=== PATIENT | female | born 1995 | race Caucasian/White ===

== ENCOUNTER 2018-05-09 16:56 | Emergency (ER) | payer OTHER ==
--- NOTE | 2018-05-09 17:09 | PDOC ---
Rapid Medical Evaluation Chief Complaint: Pain, Acute Time Seen by Provider: 05/09/18 17:00 Medical Evaluation: Allergies Allergy/AdvReac Type Severity Reaction Status Date / Time No Known Allergies Allergy Verified 09/02/15 18:10 05/09/18 17:08 I have performed a brief in-person evaluation of this patient. The patient presents with a chief complaint of:pelvic pain w/ fever of 101.3 x 5 days. States menses abnl last month but home preg test was neg Pertinent physical exam findings:Stable I have ordered the following:labs/ua/preg The patient will proceed to the ED for further evaluation Discharge Disposition - Diagnosis Pelvic pain - Discharge Dispostion Condition at time of disposition: Stable - Referrals - Patient Instructions - Post Discharge Activity
[2018-05-09 17:10] VITALS: BMI 19.7
--- NOTE | 2018-05-09 17:24 | PDOC ---
History of Present Illness - General Chief Complaint: Pain, Acute Stated Complaint: ABD PAIN Time Seen by Provider: 05/09/18 17:00 - History of Present Illness Initial Comments: The patient is a 22F w/ a history of C/S x1 (2y ago) who presents for evaluation of 3d of lower abdominal/pelvic pain. The patient describes the pain as cramping, intermittent, radiates to her lower back. She denies having pain like this before. She tried taking Motrin once this morning at 0800 with some relief. Endorses 2 episodes of NBNB emesis yesterday. Reports recent irregular periods, LMP 15d ago. However, reports blood in urine today similar to that which she has during menses. Denies fevers/chills, BHAGAT, vision changes, chest pain, SOB, C/D, or changes in sensation Denies PCP or OBGYN 05/09/18 17:44 Past History - Past Medical History Allergies/Adverse Reactions: Allergies Allergy/AdvReac Type Severity Reaction Status Date / Time No Known Allergies Allergy Verified 09/02/15 18:10 Home Medications: Ambulatory Orders NK [No Known Home Medication] 05/09/18 Asthma: No Cancer: No Cardiac Disorders: No Diabetes: No HTN: No Seizures: No Thyroid Disease: No - Suicide/Smoking/Psychosocial Hx Smoking History: Never smoked Have you smoked in the past 12 months: No Information on smoking cessation initiated: No Hx Alcohol Use: No Drug/Substance Use Hx: No Hx Substance Use Treatment: No Review of Systems - Review of Systems Able to Perform ROS?: Yes Comments:: GENERAL/CONSTITUTIONAL: No fever or chills. No weakness HEAD, EYES, EARS, NOSE AND THROAT: No change in vision. No ear pain or discharge. No sore throat CARDIOVASCULAR: No chest pain or shortness of breath RESPIRATORY: Denies cough, hemoptysis GASTROINTESTINAL: per HPI GENITOURINARY: No dysuria, frequency MUSCULOSKELETAL: No joint or muscle swelling or pain. No neck or back pain SKIN: No rash NEUROLOGIC: No headache, vertigo, loss of consciousness, or change in strength/ sensation ENDOCRINE: No increased thirst. No abnormal weight change HEMATOLOGIC/LYMPHATIC: No anemia, easy bleeding, or history of blood clots ALLERGIC/IMMUNOLOGIC: No hives or skin allergy 05/09/18 17:21 Is the patient limited Japanese proficient: No *Physical Exam - Vital Signs Last Vital Signs Temp Pulse Resp BP Pulse Ox 98.5 F 79 18 114/73 99 05/09/18 17:07 05/09/18 17:07 05/09/18 17:07 05/09/18 17:07 05/09/18 17:07 - Physical Exam Comments: GENERAL: Awake, alert, and fully oriented, in no acute distress HEAD: No signs of trauma, normocephalic, atraumatic EYES: PERRLA, EOMI, sclera anicteric, conjunctiva clear ENT: Hearing grossly normal, nares patent, oropharynx clear without exudates. Moist mucosa LUNGS: No distress, speaks full sentences, clear to auscultation bilaterally HEART: Regular rate and rhythm, normal S1 and S2, no murmurs appreciated, peripheral pulses normal and equal bilaterally ABDOMEN: Soft, suprapubic TTP w/o rebound or guarding, non-distended, normoactive bowel sounds EXTREMITIES : Normal inspection, Normal range of motion, no edema. No clubbing or cyanosis NEUROLOGICAL: Cranial nerves II through XII grossly intact. Normal speech, normal gait, no focal sensorimotor deficits SKIN: Warm, Dry, normal turgor, no rashes or lesions noted 05/09/18 17:22 Moderate Sedation - Procedure Monitoring Vital Signs: Procedure Monitoring Vital Signs Temperature 98.5 F 05/09/18 17:07 Pulse Rate 79 05/09/18 17:07 Respiratory Rate 18 05/09/18 17:07 Blood Pressure 114/73 05/09/18 17:07 O2 Sat by Pulse Oximetry (%) 99 05/09/18 17:07 ED Treatment Course - LABORATORY CBC & Chemistry Diagram: 05/09/18 17:18 05/09/18 17:18 Medical Decision Making - Medical Decision Making The patient is a 22F who presents for 3d of pelvic/suprapubic abdominal pain w/ radiation to her back. W/ recent irregular menses. ED Course CMP, CBC, GC/chlamydia, UA, Upreg Tylenol 975mg PO once for pain 05/09/18 17:22 No leukocytosis No anemia 05/09/18 18:20 lytes wnl No MONSE LFTs wnl Preg neg gc/clamydia neg UA w/o evidence of UTI Plan for D/C w/ [facility] [employer] [facility] f/u Discharge instructions and return precautions given Patient in agreement and verbalized understanding Dispo: home 05/09/18 19:29 *DC/Admit/Observation/Transfer Diagnosis at time of Disposition: Pelvic pain - Discharge Dispostion Disposition: HOME Condition at time of disposition: Stable Decision to Admit order: No - Referrals Referrals: Michelle De Los Santos MD [Staff Physician] - - Patient Instructions Printed Discharge Instructions: DI for Pelvic Pain Additional Instructions: You were seen in the Emergency Department for pelvic pain. Please review the handout provided at discharge. Follow up with [facility], contact information is in your discharge paperwork. Return to the Emergency Department if your symptoms persist/worsen, develop vomiting, diarrhea, fevers/chills, or any new/concerning symptoms. Usted fue atendido en el servicio de urgencias por dolor plvico. Por favor revise el folleto provisto al momento del danika. Lakia un seguimiento con un gineclogo, la informacin de contacto se encuentra en rod documentacin de danika. Regrese al Departamento de Emergencias si reilly sntomas persisten / empeoran, desarrolla vmitos, diarrea, fiebre / escalofros o cualquier sntoma nuevo o relacionado con ellos. Print Language: AUSTRALIAN - Post Discharge Activity
[2018-05-09] MEDS ORDERED: ACETAMINOPHEN 325 MG TABLET (FP) PO ONE (17:52)
[2018-05-09 18:01] LABS: BASO % 0.4 % (0-2.0); EOS % 3.1 % (0-4.5); HEMATOCRIT 37.8 % (32.4-45.2); HEMOGLOBIN 13.1 GM/dL (10.7-15.3); LYMPH % 32.2 % (8-40); MCH 29.9 pg (25.7-33.7); MCHC 34.8 g/dl (32.0-36.0); MEAN PLT VOLUME 8.5 fl (7.5-11.1); MONO % 13.5 % (3.8-10.2); NEUT % 50.8 % (42.8-82.8); PLATELET COUNT 294 K/MM3 (134-434); RBC 4.39 M/mm3 (3.60-5.2); RDW 13.1 % (11.6-15.6); WHITE BLOOD COUNT 6.4 K/mm3 (4.0-10.0)
[2018-05-09] MEDS ORDERED: ACETAMINOPHEN 325 MG TABLET (FP) ONE (18:04)
[2018-05-09 18:38] LABS: ALBUMIN 3.8 g/dl (3.4-5.0); ALK PHOS 105 U/L (45-117); ANION GAP 7 MMOL/L (8-16); BILIRUBIN,TOTAL 0.3 mg/dL (0.2-1); BLOOD UREA NITROGEN 9 mg/dL (7-18); CALCIUM 8.6 mg/dL (8.5-10.1); CHLORIDE 106 mmol/L (98-107); CO2 26 mmol/L (21-32); CREATININE 0.5 mg/dL (0.55-1.3); GLUCOSE,RANDOM 93 mg/dL (74-106); POTASSIUM 3.9 mmol/L (3.5-5.1); SGOT/AST 28 U/L (15-37); SGPT/ALT 26 U/L (13-61); SODIUM 139 mmol/L (136-145); TOT PROT 7.8 g/dl (6.4-8.2)
[2018-05-09 18:52] LABS: HCG,QUALITATIVE URINE Negative; URINE APPEARANCE CLOUDY; URINE BILIRUBIN NEGATIVE (<2.0 mg/dL); URINE COLOR YELLOW; URINE GLUCOSE (UA) NEGATIVE (NEGATIVE); URINE KETONE NEGATIVE (NEGATIVE); URINE LEUK ESTERASE NEGATIVE (NEGATIVE); URINE NITRITE NEGATIVE (NEGATIVE); URINE PROTEIN NEGATIVE (NEGATIVE); URINE UROBILINOGEN NEGATIVE mg/dL (0.2-1.0)
--- NOTE | 2018-05-09 19:34 | PDOC ---
Attending Attestation - [facility] HPI: 05/09/18 19:35 The patient is a 22 year old female with no significant past medical history here today for evaluation of abdominal pain. The patient reports that her abdominal pain radiates to her back , feels like cramping, and started 3 days ago. She also reports recent irregular menstruation periods. She notes one episode of hematuria and two episodes of vomiting which took place yesterday. The patient reports taking motrin which provided no relief. She reports being sexually active and does not use protection. Patient denies headache, lightheadedness. Denies fever, chills. Denies chest pain, shortness of breath. Denies nausea, diarrhea, abdominal pain. Denies lower extremity edema. Denies neurologic symptoms. LMP: 04/20/18 Allergies: NKA Social history: Patient denies tobacco, alcohol, and drug use. Surgical history: (2016). PCP: none reported - Physicial Exam PE: 05/09/18 19:35 GENERAL: Well developed, well nourished. Awake and alert. No acute distress. HEENT: Normocephalic, atraumatic. PERRLA, EOMI. No conjunctival pallor. Sclera are non- icteric. Moist mucous membranes. Oropharynx is clear. NECK: Supple. Full ROM. No JVD. Carotid pulses 2+ and symmetric, without bruits. No thyromegaly. No lymphadenopathy. CARDIOVASCULAR: Regular rate and rhythm. No murmurs, rubs, or gallops. Distal pulses are 2+ and symmetric. PULMONARY: No evidence of respiratory distress. Lungs clear to auscultation bilaterally. No wheezing, rales or rhonchi. ABDOMINAL: +right suprapubic pain. Soft. Non-distended. No rebound or guarding. No organomegaly. Normoactive bowel sounds. MUSCULOSKELETAL Normal range of motion at all joints. No bony deformities or tenderness. No CVA tenderness. EXTREMITIES: No cyanosis. No clubbing. No edema. No calf tenderness. SKIN: Warm and dry. Normal capillary refill. No rashes. No jaundice. NEUROLOGICAL: Alert, awake, appropriate. Cranial nerves 2-12 intact. No deficits to light touch and temperature in face, upper extremities and lower extremities. No motor deficits in the in face, upper extremities and lower extremities. Normoreflexic in the upper and lower extremities. Normal speech. Toes are down- going bilaterally. Gait is normal without ataxia. PSYCHIATRIC: Cooperative. Good eye contact. Appropriate mood and affect. <Cuco Jarrett - Last Filed: 05/09/18 19:34> - Resident Resident Name: Enio Auguste - ED Attending Attestation I have performed the following: I have examined & evaluated the patient, The case was reviewed & discussed with the resident, I agree w/resident's findings & plan, Exceptions are as noted - Medical Decision Making 05/09/18 19:59 22-year-old female with irregular menstruation and pelvic cramping. Negative test UA is negative for any infection. CBC does not show any leukocytosis or significant anemia and her chemistries were unremarkable She has no right lower quadrant pain, no diarrhea, no left lower quadrant pain and her lungs are clear to auscultation. Impression dysfunctional uterine bleeding Plan follow-up with gynecology <Nanci Cedeño - Last Filed: 05/09/18 20:00>
[2018-05-09 20:05] VITALS: BP 106/66; PULSE 61; TEMP 97.8
== END 2018-05-09 20:02 | disposition home or self-care (01) ==
LOC: JER 16:56
DX: R10.2 Pelvic and perineal pain (principal)
CPT/HCPCS: 36415; 80053; 81003; 84703; 85025; 87086; 87491; 87591; 99282-25

== ENCOUNTER 2018-10-16 00:21 | Emergency (ER) | payer OTHER ==
[2018-10-16 01:24] VITALS: PULSE 84; TEMP 98.4; BMI 19.6
[2018-10-16 01:47] LABS: BASO % 0.5 % (0-2.0); EOS % 1.1 % (0-4.5); HEMOGLOBIN 12.3 GM/dL (10.7-15.3); LYMPH % 27.7 % (8-40); MCHC 33.3 g/dl (32.0-36.0); MEAN CELL VOLUME 87.2 fl (80-96); MEAN PLT VOLUME 7.6 fl (7.5-11.1); MONO % 8.1 % (3.8-10.2); NEUT % 62.6 % (42.8-82.8); PLATELET COUNT 253 K/MM3 (134-434); RBC 4.24 M/mm3 (3.60-5.2); RDW 13.4 % (11.6-15.6); WHITE BLOOD COUNT 8.4 K/mm3 (4.0-10.0)
[2018-10-16 02:00] LABS: EPI CELLS 3.9 /HPF (0-5/HPF); URINE APPEARANCE CLEAR; URINE BACTERIA 133.5 /hpf (NEGATIVE); URINE BILIRUBIN NEGATIVE (NEGATIVE); URINE CASTS 1 /lpf (0-8); URINE COLOR YELLOW; URINE GLUCOSE (UA) NEGATIVE (NEGATIVE); URINE KETONE NEGATIVE (NEGATIVE); URINE LEUK ESTERASE NEGATIVE (NEGATIVE); URINE NITRITE NEGATIVE (NEGATIVE); URINE PROTEIN NEGATIVE (NEGATIVE); URINE RBC 6 /hpf (0-4); URINE UROBILINOGEN 0.2 mg/dL (0.2-1.0); URINE WBC 1 /hpf (0-5)
--- NOTE | 2018-10-16 02:13 | PDOC ---
History of Present Illness - General Chief Complaint: Vaginal Bleeding Stated Complaint: 8 WEEKS -VAGINAL BLEEDING Time Seen by Provider: 10/16/18 01:23 - History of Present Illness Initial Comments: Savannah Archer is a 23yo otherwise healthy woman at approximately 8wks gestation by LMP (on 08/25/18) who presents with sharp low back pain today and an episode of light pink bleeding this evening. She states that she noticed the pink-colored discharge when she went to the bathroom tonight. She never had anything similar in the past. There were no complications during her first ; her daughter was born at term via (failure of labor progression). She has not yet established care with OB during this . Prior to the bleeding and back pain today, she has had no issues during the current . Ms Archer denies any continued current bleeding, abdominal pain, passage of clots, or other symptoms. She did not take any pain medication for her back because she was not sure what was safe. Past History - Past Medical History Allergies/Adverse Reactions: Allergies Allergy/AdvReac Type Severity Reaction Status Date / Time No Known Allergies Allergy Verified 10/16/18 01:24 Home Medications: Ambulatory Orders NK [No Known Home Medication] 05/09/18 Asthma: No Cancer: No Cardiac Disorders: No COPD: No Diabetes: No HTN: No Seizures: No Thyroid Disease: No - Immunization History Immunization Up to Date: (UNKNOWN) - Suicide/Smoking/Psychosocial Hx Smoking History: Never smoked Have you smoked in the past 12 months: No Information on smoking cessation initiated: No Hx Alcohol Use: No Drug/Substance Use Hx: No Hx Substance Use Treatment: No Review of Systems - Review of Systems Comments:: General: No fevers, no chills, no weight or appetite change, no malaise HEENT: No changes in vision, no changes in hearing, no congestion, no sore throat CV: No chest pain, no palpitations, no LE edema Pulm: No SOB, no cough, no wheezing GI: No nausea or vomiting, no change in bowel habits, no melena : No frequency, no urgency, no dysuria Musc: No back pain, no joint swelling, no recent injury Skin: No rash, no lesions, no erythema Endo: No excessive thirst, no heat/cold intolerance Heme: No unusual bruising or bleeding, no swollen glands Neuro: No syncope, no numbness/tingling, no focal weakness Vasc: No claudication Psych: No recent change in mood, no SI or HI *Physical Exam - Vital Signs Last Vital Signs Temp Pulse Resp BP Pulse Ox 98.4 F 84 20 103/63 98 10/16/18 01:17 10/16/18 01:17 10/16/18 01:17 10/16/18 01:10/16/18 01:17 - Physical Exam Comments: General: Comfortable, no acute distress HEENT: PERRL, EOMI, MMM, voice normal, normal neck ROM, no LAD Cards: RRR, no murmur appreciated Pulm: Comfortable on room air, clear to auscultation bilaterally Abd: Soft, nontender, nondistended : Normal external genitalia. Small amount of white physiologic discharge noted in vaginal canal. No bleeding, no lesions. No CMT or adnexal tenderness. Os closed to palpation. Ext: Atraumatic. No LE edema. ROM intact. Vasc: Extremities WWP. Skin: Normal color, no rashes or lesions Neuro: A&Ox3, CN grossly intact, normal speech, motor/sensory grossly intact and symmetric, normal gait Psych: Mood appropriate to situation ED Treatment Course - LABORATORY CBC & Chemistry Diagram: 10/16/18 01:22 10/16/18 01:22 - ADDITIONAL ORDERS Additional order review: 10/16/18 01:22 RBC 4.24 MCV 87.2 MCHC 33.3 RDW 13.4 MPV 7.6 D Neutrophils % 62.6 D Lymphocytes % 27.7 Monocytes % 8.1 Eosinophils % 1.1 Basophils % 0.5 Medical Decision Making - Medical Decision Making 10/16/18 02:28 Savannah Archer is a 23yo otherwise healthy woman at reported 8wks gestation by LMP (on 08/25/18, 7w3d) who presents with sharp low back pain today and an episode of light pink bleeding this evening. - Normal v threatened v inevitable . No report of clots or significant bleeding; unlikely to be completed . - CBC, chemistry, bHCG, T&S ordered by Dr Wei. CBC and chemistry unremarkable. bHCG not yet completed - Transvaginal US completed, to be reviewed when available - Benign physical exam. Os closed, no current bleeding 10/16/18 02:55 - Reviewed US. Intrauterine gestational sac seen. Measures 5w5d. HR not recorded. Radiology report pending - Updated Ms Archer. Will most likely d/c home with OB follow up when US report available and bHCG completed. 10/16/18 04:36 - bHCG 10,000, c/w gestational age - Will d/c home with 72hr follow-up for repeat ultrasound and bHCG. - Has not yet established care w/ OB, will refer Discussed with Dr Wei. Natalie Dwyer PGY1 *DC/Admit/Observation/Transfer Diagnosis at time of Disposition: Vaginal bleeding in patient at less than 20 weeks gestation - Discharge Dispostion Disposition: HOME Condition at time of disposition: Fair Decision to Admit order: No - Referrals Referrals: Tameka Blake MD [Staff Physician] - Junior Maier MD [Staff Physician] - Michelle De Los Santos MD [Staff Physician] - Chema Magana MD [Staff Physician] - Aye Cavanaugh MD [Staff Physician] - - Patient Instructions Printed Discharge Instructions: DI for -- Discomforts and Remedies, DI for Vaginal Bleeding During Additional Instructions: Discharge Instructions: You were seen in the ED for vaginal bleeding during . You had blood tests, an ultrasound, and a physical exam. There is currently no bleeding. Your ultrasound showed an early at approximately 5 weeks 6 days. It is too early to see a heartbeat. [place] [id number]. You will need to follow up in 48 hours for repeat ultrasound and blood tests. You may see an shift manager or come back to the emergency room for these tests. You may take acetaminophen (Tylenol) 650mg every 6-8 hours as needed for pain. Do not take more than 4000mg per day. Please establish care with an shift manager as soon as possible. You should be seen within the next 2-3 days. Seek immediate care if you have continued or worsening symptoms, continued vaginal bleeding, severe abdominal pain, or any other medical emergency. Instrucciones de descarga: Usted fue atendido en el servicio de urgencias por sangrado vaginal zaid el embarazo. Le hicieron anlisis de luis, arnold ecografa y un examen fsico. Actualmente no hay sangrado. Mclain ultrasonido mostr un embarazo temprano en aproximadamente 5 semanas y 6 neri. Es demasiado temprano para chandler un latido del corazn. Mclain hormona del embarazo se midi para ser 10,000. Deber realizar un seguimiento en 48 horas para repetir la ecografa y los anlisis de luis. Puede chandler a un obstetra o regresar a la jelly de emergencias. Puede sayna acetaminofn (Tylenol) 650 mg cada 6-8 horas segn sea necesario para el dolor. No tome ms de 4000mg por da. Por favor establezca la atencin con un obstetra lo antes posible. Deben verlo dentro de las prximas 2 o 3 ashby. Busque atencin inmediata si tiene sntomas continuos o que empeoran, sangrado vaginal continuo, dolor abdominal intenso o cualquier otra emergencia mdica. Print Language: SPA - Post Discharge Activity
[2018-10-16 02:21] LABS: ALBUMIN 3.8 g/dl (3.4-5.0); BILIRUBIN,TOTAL 0.5 mg/dL (0.2-1); CALCIUM 8.8 mg/dL (8.5-10.1); CREATININE 0.5 mg/dL (0.55-1.3); POTASSIUM 3.5 mmol/L (3.5-5.1)
[2018-10-16] MEDS ORDERED: ACETAMINOPHEN 325 MG TABLET (FP) PO ONE (02:27)
[2018-10-16] MEDS ORDERED: ACETAMINOPHEN 325 MG TABLET (FP) ONE (02:33)
--- NOTE | 2018-10-16 03:00 | PDOC ---
Attending Attestation - Resident Resident Name: YuliyaNatalie - ED Attending Attestation I have performed the following: I have examined & evaluated the patient, The case was reviewed & discussed with the resident, I agree w/resident's findings & plan, Exceptions are as noted - HPI HPI: 10/16/18 03:11 23yo F 8 weeks by dates presents to the ED with lower back pain since this evening a/w with one episode of blood on toilet paper also this evening. Pt is tearful and concerned something is wrong with the . Has not had care for this yet. Denies fevers, chills, vaginal DC, dysuria , hematuria, frequency. Denies CP, SOB, dizziness, abd pain. Previous was full term, no complications. Denies trauma. - Physicial Exam PE: 10/16/18 03:19 agree with resident exam - Medical Decision Making 10/16/18 03:20 23yo F 7 weeks by dates presents to the ED with low back pain and vaginal spotting. Vitals wnl Exam with no blood in vault, os closed, no adnexal or midline ttp Labs thus far wnl, pt is O+ TVUS and B HCG pending. 10/16/18 04:39 TVUS with 5w+6d preg, no FHR yet possibly as too early Likely threatened Ab No further bleeding in ED HDS Plan for pt to f/u with OB within 48 hours for rpt beta, or return to ED if she can not get appointment Pt in agreement with plan REturn precautions given I discussed the physical exam findings, ancillary test results and final diagnoses with the patient. I answered all of the patient's questions. The patient was satisfied with the care received and felt comfortable with the discharge plan and treatment plan. The patient will call their primary care physician within 24 hours to arrange follow-up and will return to the Emergency Department with any new, persistent or worsening symptoms.
[2018-10-16 04:52] VITALS: BP 108/61
== END 2018-10-16 04:53 | disposition home or self-care (01) ==
LOC: JER 00:21
DX: O26.891 Other specified pregnancy related conditions, first trimester (principal); O20.8 Other hemorrhage in early pregnancy; Z3A.08 8 weeks gestation of pregnancy
CPT/HCPCS: 36415; 76817-TC; 80053; 81003; 83735; 84702; 85025; 86850; 86900; 86901; 87086; 99283-25

== ENCOUNTER 2019-06-06 18:40 | Inpatient (IN) | payer OTHER ==
[2019-06-06] MEDS ORDERED: ELECTROLYTE-148 SOLN 500 ML IV ONE (20:13)
[2019-06-06] MEDS ORDERED: CITRIC ACID/SODIUM CITRATE 30 ML UNIT-DOSE CUP PO ONE (20:13)
--- NOTE | 2019-06-06 20:29 | HP ---
Past Medical History - Primary Care Physician PCP:: Aye Cavanaugh - Admission Chief Complaint: 23 yrs , 39.1 weeks iup previous LFTC/section , onset LP since 7.00AM , she requests for repeat c/s , declines to try trial History of Present Illness: care at , [facility] wt gain 28 lbs work Up 11/04/18 O pos, , h/h11.7/37.2, plt 283, Hbsag neg, varicella immune, rubella immune , hiv neg , sickle neg 28 week panel :03/08/2019 h/h 11.8/35.1 , plt 272, Quantiferon neg , 1hr gtt 119 , hiv neg 36 week panel ;05/22/2019 h/h 12.1/37.4, plt 272, gbs neg, hiv neg pt was seen by MFM NT screen & AFP screen neg growth sono done last sono on 05/23/19 37.1 wks, Vx, ant placenta, bharati 11,4, efw 7'9" ( 84 %tile ) pt has come to L&D on 05/23 & 05/26 for labor assess. c/o pain for 3 days , severe since 7.00 AM today , unable to tolerate . History Source: Patient, Medical Record Limitations to Obtaining History: No Limitations - Past Medical History MARRIAGE COUNSELOR: No: Alzheimer's, CVA Cardiovascular: No: AFIB, HTN, Murmur Pulmonary: No: Asthma Hepatobiliary: No: Hepatitis B, Hepatitis C ...: 2 ...Para: 1 (primary c/section 09/03/15 PPROM, FTP , 8lb ) ...Term: 1 ...LMP: 08/22/18 ... Weeks Gestation by Dates: 41 ...EDC by Dates: 05/29/19 (EDC considered by SONO ) ...EDC by Sono: 06/12/19 (39.1 weeks by sono ) Heme/Onc: Yes: Anemia Infectious Disease: No: AIDS, HIV, STD's Psych: No: Addictions, Anxiety, Bipolar, Depression, Panic, Psychosis, Schizophrenia, Other Musculoskeletal: No: Bursitis, Chronic low back pain, Hemiparesis, Hemiplegia, Osteoarthritis, Paraplegia, Other Rheumatology: Yes: Other (none) Endocrine: No: Renzo's Disease, Home's Disease, Diabetes Insipidus, Diabetes Mellitus, Hyperparathyroidism, Hyperthyroidism, Hypothyroidism, Osteopenia, SIADH, Other - Past Surgical History Past Surgical History: Yes: (09/03/2015 primaer LFTC/s sj) Hx Myomectomy: No Hx Transabdominal Cerclage: No - Smoking History Smoking history: Never smoked Have you smoked in the past 12 months: No - Alcohol/Substance Use Hx Alcohol Use: No History of Substance Use: reports: None - Social History History of Recent Travel: No Home Medications - Allergies Allergies/Adverse Reactions: Allergies Allergy/AdvReac Type Severity Reaction Status Date / Time No Known Allergies Allergy Verified 06/06/19 21:04 - Home Medications Home Medications: Ambulatory Orders Ferrous Sulfate [Feosol] 325 mg PO DAILY 06/06/19 Vitamins (r) - 1 tab PO DAILY 06/06/19 Physical Exam - Maternity Vital Signs: Selected Entries 06/06/19 20:01 Temperature 98.6 F Pulse Rate 81 Blood Pressure 127/81 Weight 138 lb Constitutional: Yes: Severe Distress (crying), Other (pain scale 10/10) Eyes: Yes: WNL HENT: Yes: WNL, Normocephalic Neck: Yes: WNL Cardiovascular: Yes: WNL, Regular Rate and Rhythm Lungs: Clear to auscultation Breast(s): Yes: WNL - Abdominal Exam/OB Fundal Height: 40 Number of Fetuses: Single Presentation: Vertex Contractions: Yes Regularity: Irregular (2-4 min) Intensity: Mod/Strong Monitor Mode: External Heart Rate (range): 130-140 Heart Rate Location: [facility] Category: I Accelerations: Uniform - Vaginal Exam/OB Vaginal Bleediing: No Speculum Exam: No Dilatation (cm): FT Effacement (%): 60 Amniotic Membrane Status: Intact Presentation: Vertex/Position (exam at 7.40 PM) Station: -3 - Physical Exam Musculoskeletal: Yes: WNL Extremities: Yes: WNL. No: Calf Tenderness Edema: Yes Edema: LLE: 1+, RLE: 1+ Integumentary: Yes: WNL, Incision (pfannensteil icision keloid, tender to palpate) Deep Tendon Reflex Grade: Normal +2 ...Motor Strength: WNL Psychiatric: Yes: WNL, Alert, Oriented - Labs Lab Results: Laboratory Tests 06/06/19 06/06/19 06/06/19 20:45 20:45 20:45 WBC 8.5 Hgb 12.4 Hct 37.2 MCV 90.7 MCH 30.2 MCHC 33.3 RDW 13.9 Plt Count 251 MPV 8.1 Absolute Neuts (auto) 5.8 Neutrophils % 68.0 Lymphocytes % 24.5 Monocytes % 6.5 Eosinophils % 0.4 Basophils % 0.6 PT with INR 11.00 INR 0.93 PTT (Actin FS) 30.2 Sodium 138 Potassium 3.7 Chloride 107 Carbon Dioxide 21 BUN 11.6 Creatinine 0.5 L Random Glucose 80 Blood Type Antibody Screen 06/06/19 20:45 WBC Hgb Hct MCV MCH MCHC RDW Plt Count MPV Absolute Neuts (auto) Neutrophils % Lymphocytes % Monocytes % Eosinophils % Basophils % PT with INR INR PTT (Actin FS) Sodium Potassium Chloride Carbon Dioxide BUN Creatinine Random Glucose Blood Type O POSITIVE Antibody Screen Negative Hemorrhage Risk Assessment - Risk Factors Medium Risk Factors: Yes: Prior , uterine surgery,or multiple laparotomies Risk Score: 1 Risk Level: Medium Risk Problem List - Problems (1) with 39 completed weeks gestation Code(s): Z3A.39 - 39 WEEKS GESTATION OF (2) Labor established Code(s): VAS3083 - (3) Previous section Code(s): Z98.891 - HISTORY OF UTERINE SCAR FROM PREVIOUS SURGERY Assessment/Plan 23 yrs 39.1 weeks has prodromal latent phase of labor pt refuses to continue trial of . requests for repeat c/s . r/b/a told
[2019-06-06] MEDS ORDERED: ELECTROLYTE-148 SOLN 1,000 ML IV SCH (20:45)
[2019-06-06 21:02] LABS: BASO % 0.6 % (0-2.0); EOS % 0.4 % (0-4.5); HEMATOCRIT 37.2 % (32.4-45.2); HEMOGLOBIN 12.4 GM/dL (10.7-15.3); LYMPH % 24.5 % (8-40); MCH 30.2 pg (25.7-33.7); MCHC 33.3 g/dl (32.0-36.0); MEAN CELL VOLUME 90.7 fl (80-96); MEAN PLT VOLUME 8.1 fl (7.5-11.1); MONO % 6.5 % (3.8-10.2); PLATELET COUNT 251 K/MM3 (134-434); RDW 13.9 % (11.6-15.6); WHITE BLOOD COUNT 8.5 K/mm3 (4.0-10.0)
[2019-06-06 21:21] LABS: INR 0.93 (0.83-1.09)
[2019-06-06 21:24] LABS: ACTIVATED PTT 30.2 SECONDS (25.2-36.5)
[2019-06-06 21:51] VITALS: BMI 26.9
[2019-06-06 22:43] LABS: BLOOD UREA NITROGEN 11.6 mg/dL (7-18); CALCIUM 8.6 mg/dL (8.5-10.1); CREATININE 0.5 mg/dL (0.55-1.3); POTASSIUM 3.7 mmol/L (3.5-5.1)
[2019-06-06] MEDS ORDERED: morphine SULFATE/PF 0.5 MG/ML (2cc Syringe - QUVA) ONE (23:54)
[2019-06-07] MEDS ORDERED: OXYTOCIN 20 UNITS in 0.9% NS 20 UNIT/1,000 ML INFUS.BAG IV ONE (00:59)
[2019-06-07] MEDS ORDERED: METHYLERGONOVINE MALEATE 0.2 MG/1 ML AMP IM PRN (01:19)
[2019-06-07] MEDS ORDERED: IBUPROFEN 800 MG/8 ML IJ IVPB PRN (01:19)
[2019-06-07] MEDS ORDERED: OXYTOCIN 20 UNITS in 0.9% NS 20 UNIT/1,000 ML INFUS.BAG IV SCH (01:30)
--- NOTE | 2019-06-07 01:34 | OP ---
Operative Note - Note: Operative Date: 06/07/19 Pre-Operative Diagnosis: 39.1 weeks, previous c/s inlabor, requests repeat c/s Operation: Kristin LFTC/section Findings: TOB 12.21 AM , Baby Boy, Vx ROT position, 9/9, wt 8'5", HT19" , cord around neckx1 both tubes & ovaries normal AFluid clear , low amount Dr Lira cell tuber machine present in the room skin scar keloid , excised , sent for pathology Surgeon: Aye Cavanaugh Patient Access Specialist: Pan Atkinson Anesthesiologist/FRANCHISE SALES REPRESENTATIVE: Aden Rosas Anesthesia: Spinal Specimens Removed: keloid skin scar. cord blood for cord gas sampling. cord blood. placenta Estimated Blood Loss (mls): 500 Drains, Volume Out (mls): 300 (eric color rodriguez catheter ) Fluid Volume Replaced (mls): 1,800 (iv ancef 2gm ivpb given ) Operative Report Dictated: Yes
[2019-06-07] MEDS ORDERED: ACETAMINOPHEN 325 MG TABLET (FP) PO PRN (02:16)
--- NOTE | 2019-06-07 03:25 | PN ---
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 PNC at , [facility] gbs neg. Intraop course uneventful 2 gm iv ancef prior to incision was given
--- NOTE | 2019-06-07 07:57 | OP ---
DATE OF OPERATION: 06/07/2019 PREOPERATIVE DIAGNOSIS: 39.1 weeks, previous section, in labor, request for repeat section. PROCEDURE PERFORMED: Repeat dxf-jmxz-sbjabvyoyl section. SURGEON: Aye Cavanaugh MD TEACHER ADULT EDUCATION: RHYS Connell ANESTHESIOLOGIST: Aden Rosas MD ANESTHESIA: Spinal. STRATEGIC CONSULTANT: Meghann Lira MD INDICATIONS: This 23-year-old -0-0-1, at 39.1 weeks, has onset of labor since 7 a.m. She was having contractions every 2 to 4 minutes, irregularly. She was fingertip dilated and was 60%, -3 station. The patient refused to continue trial, which she had planned before, and she requested repeat . DESCRIPTION OF PROCEDURE: A Delvalle catheter was placed. The abdomen was shaved and prepped. CD stockings were applied. The patient was taken to the operating room table. Spinal anesthesia was given. Then the abdomen was painted and draped in the usual manner. A Pfannenstiel incision was made through the previous scar, which was a keloid. The incision was made around the scar and it was excised. Subcutaneous tissue and scar tissue were incised transversely. Bleeding points were clamped and cauterized. The rectus sheath was also incised transversely. The rectus muscle was . The parietal peritoneum was opened vertically. The lower flap by the peritoneum was identified. It was incised transversely. The bladder was high on the uterus. So carefully the incision was taken higher up in the lower segment and it was extended transversely. The amniotic fluid was clear. The amniotic fluid appeared to be a low amount. The baby was at 0021 hours from ROT position, vertex. Apgars were 9 and 9. The cord was clamped and cut. Cord blood was collected. The baby had a cord around the neck. The baby's weight is 8 pounds 5 ounces and length is 19 inches. After the cord was cut, the placenta was removed completely with the membranes. Before that, cord blood was collected and cord segment was also sent for cord blood gases. Then the uterine cavity was cleaned. Both tubes and ovaries were normal. Then the uterine incision was closed in 2 layers. The 1st layer was a continuous locking with Biosyn 0 suture. The 2nd layer was a continuous intermittent locking with Biosyn 0 suture, and the 1st layer was imbricated with that. Intermittent sutures were taken in the bladder peritoneum and it was not completely covered where the bladder was very close to the peritoneum. Irrigation was done. Sponge, instrument and needle count was correct. Then closure of the abdomen was done. The parietal peritoneum was closed with Vicryl 0 suture. The muscles were approximated together with Vicryl 0 sutures. Interrupted sutures were taken. Then the anterior rectus sheath was mobilized from the skin scar and the rectus muscles under the rectus sheath, and bleeding was checked. Hemostasis was noted. Then the rectus sheath was closed with Vicryl 0 suture; continuous sutures were taken. Then the subcutaneous tissue with interrupted Biosyn 0 sutures were approximated. Then the skin was approximated with luis. A pressure dressing was given. Blood clots were removed from the vagina. The patient tolerated the procedure well and she was transferred to the recovery room in stable condition. Estimated blood loss was 500 mL. She had intraoperative urine output of 300 mL. She received 2 g of IV Ancef prior to the incision. Lana [id number]
[2019-06-07] MEDS ORDERED: CEFAZOLIN 1 GM/D5W 1 GM/50 ML BAG IVPB SCH (08:00)
--- NOTE | 2019-06-07 08:53 | PN ---
Progress Note (short form) - Note Progress Note: ppd #0 pt in bed scd in situ rodriguez in place draining , out put 150 ml, eric color urine in rodriguez bag pain scale 3/10, getting iv Motrin . Selected Entries 06/07/19 06:00 Temperature 98.1 F Pulse Rate 76 Blood Pressure 113/65 p/a abd not distended , soft bs active dressing dry lochia moderate attempting BF ass stable Plan ct po care encourage ambulation when rodriguez taken out Problem List - Problems (1) with 39 completed weeks gestation Code(s): Z3A.39 - 39 WEEKS GESTATION OF (2) Labor established Code(s): VLZ0496 - (3) Previous section Code(s): Z98.891 - HISTORY OF UTERINE SCAR FROM PREVIOUS SURGERY
[2019-06-07] MEDS: CEFAZOLIN 1 GM/D5W 1 GM/50 ML BAG IVPB SCH ×2 (10:31→16:48)
[2019-06-07] MEDS: IBUPROFEN 600 MG TABLET (FP) PO PRN ×2 (16:47→22:22)
[2019-06-07] MEDS: ACETAMINOPHEN 325 MG TABLET (FP) PO PRN ×2 (16:48→22:23)
[2019-06-07] MEDS: SIMETHICONE 80 MG TAB.CHEW (FP) PO PRN (22:21)
[2019-06-07] MEDS: SENNOSIDES/DOCUSATE COMBO (SENNA PLUS) TABLET (UD) PO PRN (22:21)
[2019-06-08] MEDS: CEFAZOLIN 1 GM/D5W 1 GM/50 ML BAG IVPB SCH (00:48)
[2019-06-08] MEDS: ACETAMINOPHEN 325 MG TABLET (FP) PO PRN ×2 (06:13→13:20)
[2019-06-08] MEDS: IBUPROFEN 600 MG TABLET (FP) PO PRN ×3 (06:13→20:14)
--- NOTE | 2019-06-08 06:29 | PN ---
Post Progress Note - Subjective Subjective: Pain controlled. Delvalle in place. No fevers/chills. Post Day: 1 Type of Delivery: Repeat C/S Vital Signs: Vital Signs Temperature 98.7 F 06/07/19 21:41 Pulse Rate 79 06/07/19 21:41 Respiratory Rate 20 06/07/19 21:41 Blood Pressure 112/45 L 06/07/19 21:41 O2 Sat by Pulse Oximetry (%) 99 06/07/19 02:00 Uterus: Yes: Fundus below umbilicus Incision: Yes: Dressing dry and intact, Jeniffer intact Abdomen/GI: Yes: Abdomen soft Lochia: Yes: Rubra Lochia, amount: Small Extremities: Yes: Calves non-tender Perineum: Yes: Intact Activity: Ambulating - Labs Labs: CBC WBC 8.5 K/mm3 (4.0-10.0) 06/06/19 20:45 RBC 4.10 M/mm3 (3.60-5.2) 06/06/19 20:45 Hgb 12.4 GM/dL (10.7-15.3) 06/06/19 20:45 Hct 37.2 % (32.4-45.2) 06/06/19 20:45 MCV 90.7 fl (80-96) 06/06/19 20:45 MCH 30.2 pg (25.7-33.7) 06/06/19 20:45 MCHC 33.3 g/dl (32.0-36.0) 06/06/19 20:45 RDW 13.9 % (11.6-15.6) 06/06/19 20:45 Plt Count 251 K/MM3 (134-434) 06/06/19 20:45 MPV 8.1 fl (7.5-11.1) 06/06/19 20:45 Absolute Neuts (auto) 5.8 K/mm3 (1.5-8.0) 06/06/19 20:45 Neutrophils % 68.0 % (42.8-82.8) 06/06/19 20:45 Lymphocytes % 24.5 % (8-40) 06/06/19 20:45 Monocytes % 6.5 % (3.8-10.2) 06/06/19 20:45 Eosinophils % 0.4 % (0-4.5) 06/06/19 20:45 Basophils % 0.6 % (0-2.0) 06/06/19 20:45 Nucleated RBC % 0 % (0-0) 06/06/19 20:45 Assessment/Plan 23yo s/p RLTCS, POD#1 Routine PP care OOB, ambulate D/C/ Delvalle PO Pain control D/C to home by POD#4 Taylor Blake MD
[2019-06-08] MEDS: BISACODYL 10 MG SUPP.RECT RC PRN ×2 (07:45→23:49)
[2019-06-08 09:09] LABS: BASO % 0.5 % (0-2.0); EOS % 0.8 % (0-4.5); HEMATOCRIT 34.9 % (32.4-45.2); HEMOGLOBIN 11.8 GM/dL (10.7-15.3); LYMPH % 16.5 % (8-40); MCH 30.8 pg (25.7-33.7); MCHC 33.9 g/dl (32.0-36.0); MEAN CELL VOLUME 90.9 fl (80-96); MEAN PLT VOLUME 8.2 fl (7.5-11.1); NEUT % 76.2 % (42.8-82.8); PLATELET COUNT 239 K/MM3 (134-434); RBC 3.84 M/mm3 (3.60-5.2); RDW 14.1 % (11.6-15.6); WHITE BLOOD COUNT 9.5 K/mm3 (4.0-10.0)
[2019-06-08] MEDS: PRENATAL VITAMINS W/ FOLIC ACID TABLET (FP) PO SCH (10:11)
[2019-06-08] MEDS: oxyCODONE HCL 5 MG TABLET PO PRN ×3 (11:00→20:15)
--- NOTE | 2019-06-08 16:12 | PATH ---
Surgical Pathology Report Patient Name: SYLVIA OLIVEIRA Med. Rec. #: [id number] /Age/Gender: 1995 (Age: 23) / F Account: [id number] Location: [facility] OBS/MEDIA CENTER DIRECTOR SCHOOL Taken: 06/07/2019 Received: 06/07/2019 Reported: 06/08/2019 Physicians: Aye Cavanaugh M.D. Specimen(s) Received A: ABDOMINAL SCAR TISSUE B: PLACENTA Clinical History Previous in labor, 2016 Final Diagnosis A. ABDOMINAL SCAR TISSUE, EXCISION: PORTION OF SKIN WITH KELOID. B. PLACENTA: THIRD TRIMESTER PLACENTA. TRIVASCULAR CORD. MEMBRANES WITH NO DIAGNOSTIC ABNORMALITIES. Electronically Signed Ladarius Corrigan M.D. Gross Description A. Received in formalin labeled "abdominal scar tissue," is 11.0 x 1.1 cm juarez, elliptical, unoriented portion of skin excised to a depth of 1.3 cm. The epidermal surface displays a central, linear, hypertrophied scar. Construction Framer sections are submitted in one cassette. B. The specimen is received fresh labeled placenta and is a 499 gram, 18.0 x 16.5 x 2.5 cm. placenta with attached membranes and umbilical cord. The attached membranes are juarez, translucent with focal opacities and insert marginally. The umbilical cord measures 18 cm. in length and averages 1.2 cm. in diameter. The cord inserts centrally. No true knots or strictures are identified. Cut surface of the umbilical cord reveals 3 vessels. The surface is jimenez-blue with minimal fibrin deposition and appropriate caliber vessels. The maternal surface is red-brown with focal defects. Sectioning reveals red-brown, spongy parenchyma. No lesions are identified. Construction Framer sections are submitted in three cassettes as follows: 1- membrane rolls and umbilical cord; 2-3- full thickness sections of placenta. DL/06/07/2019 saudi/06/07/2019
[2019-06-08] MEDS: SIMETHICONE 80 MG TAB.CHEW (FP) PO PRN ×2 (20:14→23:49)
[2019-06-08] MEDS: FERROUS SO4 325 MG TABLET (FP) PO SCH (22:12)
[2019-06-09] MEDS: ACETAMINOPHEN 325 MG TABLET (FP) PO PRN ×6 (00:31→22:01)
[2019-06-09] MEDS: SENNOSIDES/DOCUSATE COMBO (SENNA PLUS) TABLET (UD) PO PRN (00:31)
[2019-06-09] MEDS: IBUPROFEN 600 MG TABLET (FP) PO PRN ×7 (00:31→22:02)
[2019-06-09] MEDS: oxyCODONE HCL 5 MG TABLET PO PRN (04:41)
--- NOTE | 2019-06-09 08:20 | PN ---
Progress Note (short form) - Note Progress Note: pod 2 s/p c/s doing well, ambulating CBC, BMP 06/08/19 08:25 06/06/19 20:45 Last Vital Signs Temp Pulse Resp BP Pulse Ox 99.1 F 92 H 20 108/58 L 99 06/08/19 20:39 06/08/19 20:39 06/08/19 20:39 06/08/19 20:39 06/07/19 02:00 abdomen soft , no distension, no cva incision dry, clean no calf tenderness no excess vaginal bleeding plan ambulate , cbc pain management
[2019-06-09] MEDS: PRENATAL VITAMINS W/ FOLIC ACID TABLET (FP) PO SCH (10:00)
[2019-06-09] MEDS: FERROUS SO4 325 MG TABLET (FP) PO SCH ×2 (10:00→22:01)
[2019-06-09] MEDS: SIMETHICONE 80 MG TAB.CHEW (FP) PO PRN ×4 (11:10→23:08)
[2019-06-09] MEDS: BISACODYL 10 MG SUPP.RECT RC PRN (22:09)
[2019-06-10] MEDS: IBUPROFEN 600 MG TABLET (FP) PO PRN ×2 (05:39→09:48)
[2019-06-10] MEDS: ACETAMINOPHEN 325 MG TABLET (FP) PO PRN ×2 (05:39→09:48)
[2019-06-10] MEDS: SIMETHICONE 80 MG TAB.CHEW (FP) PO PRN ×2 (05:39→09:47)
[2019-06-10 07:36] LABS: BASO % 0.2 % (0-2.0); EOS % 3.4 % (0-4.5); HEMATOCRIT 31.6 % (32.4-45.2); HEMOGLOBIN 10.7 GM/dL (10.7-15.3); LYMPH % 24.4 % (8-40); MCH 30.8 pg (25.7-33.7); MCHC 33.8 g/dl (32.0-36.0); MEAN PLT VOLUME 8.1 fl (7.5-11.1); MONO % 6.4 % (3.8-10.2); NEUT % 65.6 % (42.8-82.8); PLATELET COUNT 260 K/MM3 (134-434); RBC 3.48 M/mm3 (3.60-5.2); RDW 14.2 % (11.6-15.6); WHITE BLOOD COUNT 7.8 K/mm3 (4.0-10.0)
[2019-06-10] MEDS: PRENATAL VITAMINS W/ FOLIC ACID TABLET (FP) PO SCH (09:47)
[2019-06-10] MEDS: FERROUS SO4 325 MG TABLET (FP) PO SCH (09:47)
--- NOTE | 2019-06-10 09:56 | DS ---
Physical Exam-SR. DIRECTOR Vital Signs: Vital Signs Temperature 98.1 F 06/09/19 21:37 Pulse Rate 72 06/09/19 21:37 Respiratory Rate 18 06/09/19 21:37 Blood Pressure 112/69 06/09/19 21:37 O2 Sat by Pulse Oximetry (%) 99 06/07/19 02:00 Constitutional: Yes: Well Nourished, No Distress, Calm Eyes: Yes: WNL, Conjunctiva Clear, EOM Intact HENT: Yes: WNL, Atraumatic, Normocephalic Neck: Yes: WNL, Supple, Trachea Midline Cardiovascular: Yes: WNL Respiratory: Yes: WNL, Regular Gastrointestinal: Yes: WNL Renal/: Yes: WNL ....Post : Yes: Uterus firm, Uterus non-tender, Slight lochia rubra Breast(s): Yes: WNL Musculoskeletal: Yes: WNL Extremities: Yes: WNL Integumentary: Yes: WNL Wound/Incision: Yes: Clean/Dry, Well Approximated, [place] Intact Neurological: Yes: WNL, Alert, Oriented ...Motor Strength: WNL Psychiatric: Yes: WNL, Alert, Oriented Labs: CBC, BMP 06/10/19 06:28 06/06/19 20:45 Delivery - Delivery Section: Repeat, Low Flap Transverse (39.1 weeks, previous c/s in labor , requests for c/section) Type of Anesthesia: Spinal Episiotomy/Laceration: None EBL (cc): 500 (rodriguez output 300 ml eric color ) Delivery, Single - Stages of Labor Date 1st Stage Initiatied: 06/06/19 Time 1st Stage Initiated: 07:00 Date of Delivery: 06/07/19 Time of Delivery: 00:21 Time Placenta Delivered: 00:23 Placenta: Yes: Manual Removal, Uterine Exploration - Condition of Infant Primary Substance Abuse Counselor/Window Shade Cutter Present: Yes Name: Meghann Lira Gender: Male Weight: 8 lb 5 oz Position: Right, OT (cord around neck) Total Hours ROM (Hrs/Mins): 2 min - 1 Minute Total Score: 9 5 Minutes Total Score: 9 - Feeding Plan Initial Plan: Exclusive throughout hospitalization Discharge Summary Problems reviewed: Yes Reason For Visit: LABOR ADMIT Current Active Problems Delivery by emergency section (Acute) Labor established (Acute) with 39 completed weeks gestation (Acute) Previous section (Acute) Procedures: Principal: repeat LST c/s Other Procedures: none Hospital Course: no complication Health Concerns: obesity, anemia Plan of Treatment: iron, vit, low carb diet, exercise Goals: HB 12, normal BMI Condition: Good - Instructions Diet, Activity, Other Instructions: Post Instructions DIET: Continue good diet high in protein, calcium, and iron rich foods. Drink at least eight (8) glasses of water daily in addition to other fluids. ct Regular diet MEDICATIONS: Continue vitamins and iron as previously directed. Motrin and Tylenol may be taken for minor discomfort. ACTIVITY: Mild to moderate exercise may be started in two (2) weeks. Take frequent rest periods. Resume normal activity after six (6) week check up. WOUND CARE OF OPERATIVE SITE: Continue use of perineal bottle until vaginal discharge stops. Keep area clean. Shower daily. Keep abdominal wound dry. Report any drainage or redness to physician. Tub baths, tampons and douches are not permitted for [address]_ Breast feeding & or Bottle feeding BREAST CARE: (For those that are not ): If engorgement occurs: Wear tight fitting bra. Take Tylenol or Motrin for pain. Apply cold packs (ice in bags to each breast ) FAMILY PLANNING: There are many control alternatives to pursue and they should be discussed at your first office visit. You may resume sexual activity after your six (6) week check up. (Remember, is not a contraceptive) NEXT PHYSICIAN APPOINTMENT: Be certain to call for a one (1) week appointment, unless otherwise directed. RTC for wound check, luis removal on Wednesday Call Clinic or got to Emergency Dept if you have any of the following: Heavy vaginal bleeding Painful urination Leg pain Unusual odor noted to vaginal bleeding High fever Red streaking noted on breast Referrals: Aye Cavanaugh MD [Staff Physician] - Disposition: HOME - Home Medications Comprehensive Discharge Medication List: Ambulatory Orders Ferrous Sulfate [Feosol] 325 mg PO DAILY 06/06/19 Vitamins (Sjr) - 1 tab PO DAILY 06/06/19 Acetaminophen [Tylenol .Regular Strength -] 500 mg PO Q4H PRN #30 tablet Ferrous Sulfate [Feosol] 325 mg PO BID tab 06/09/19 Ibuprofen [Motrin -] 600 mg PO Q4H PRN #30 tablet 06/09/19 Vitamins (Sjr) - 1 tab PO DAILY #30 tablet 06/09/19
[2019-06-10 11:55] VITALS: BP 111/61; PULSE 75; TEMP 98.4
== END 2019-06-10 13:00 | disposition home or self-care (01) | DRG 540 ==
LOC: JDEL 18:40 → JLDR 19:40 → J3W 06-07 02:45
PROVIDERS: ADMIT Obstetrics & Gynecology; ATTEND Obstetrics & Gynecology
PROC: 10D00Z1 Extraction of Products of Conception, Low, Open Approach (ICD-10-PCS; principal; 2019-06-07)
PROC: 0HB7XZZ Excision of Abdomen Skin, External Approach (ICD-10-PCS; 2019-06-07)
DX: O34.211 Maternal care for low transverse scar from previous cesarean delivery (principal); O69.81X0 Labor and delivery complicated by cord around neck, without compression, not applicable or unspecified; O75.89 Other specified complications of labor and delivery; L91.0 Hypertrophic scar; Z3A.39 39 weeks gestation of pregnancy; Z37.0 Single live birth
CPT/HCPCS: 36415; 36600; 59025; 80048; 82803; 85025; 85610; 85730; 86593; 86850; 86900; 86901